=== PATIENT | male | born 1975 | race Hispanic/Latino ===

== ENCOUNTER 2024-07-31 15:43 | Emergency (ER) | payer SELFPAY ==
--- NOTE | ~2024-07-31 | CT_ITS ---
EXAMINATION: CT brain wo con DATE: 07/31/2024 17:10 INDICATION: Seizure TECHNIQUE: Computed tomography (CT) of the head was performed without intravenous contrast. Sagittal and coronal reconstructions were performed. The mA was adjusted according to patient size. Iterative reconstruction technique was employed. The dose-length product was 681.00 mGy-cm. COMPARISON: None FINDINGS: No acute intracranial hemorrhage, acute infarction or abnormal extra axial fluid collection. Ventricl es are normal and symmetric. No mass/mass effect. The orbits, paranasal sinuses and mastoid air cells are normal. IMPRESSION: 1. No acute intracranial process. Reviewed, dictated and finalized at location A.
--- NOTE | ~2024-07-31 | XR_ITS ---
EXAMINATION: XR femur RT min 2V DATE: 07/31/2024 17:00 INDICATION: Right femur pain post fall TECHNIQUE: Overlapping proximal and distal, AP and lateral views of the right femur were obtained. COMPARISON: None FINDINGS: Alignment is normal. No fracture. Right hip and knee joint spaces appear normal. Mild osteoarthritis at the left sacroiliac joint. There is suggestion of some cystic change at the anterosuperior right femoral head neck junction. No knee joint effusion. Soft tissues are unremarkable. IMPRESSION: No acute osseous abnormality. Reviewed, dictated and finalized at location A.
--- NOTE | ~2024-07-31 | CT_ITS ---
CT cervical spine wo con Ordering provider: Stacie Carreno PA-C History: . seizure . Comparison: None. Technique: CT of the cervical spine was performed without contrast. Sagittal and coronal reformatted images were also obtained and reviewed. Automated exposure control and iterative reconstruction juliane hnique were employed. The dose-length product was 413.36 mGy-cm. FINDINGS: VERTEBRAE: No subluxation or acute fracture. The occipital condyles are intact. Degenerative changes of the spine. DISC SPACES: Severe narrowing of the disc C5-C6 and C6-C7. Multilevel facet joint disease. Multilevel uncovertebral joint osteoarthritic changes. Narrowing of the right foramen at the level of C2-C3 and C3-C4. Bilateral narrowing of the foramina at the level of C4-C5, C5-C6 and C6-C7. PARASPINOUS SOFT TISSUES: Normal. IMPRESSION: No acute osseous abnormality cervical spine. Multilevel degenerative disc disease. Reviewed, dictated and finalized at location A.
--- NOTE | ~2024-07-31 | XR_ITS ---
EXAMINATION: XR knee LT min 4V DATE: 07/31/2024 17:00 INDICATION: Left knee injury post seizure TECHNIQUE: Anteroposterior, 2 oblique and crosstable lateral views of the left knee were obtained COMPARISON: None. FINDINGS: Alignment is normal. No fracture. Joint spaces appear normal on nonweightbearing imaging. No joint e ffusion/layering lipohemarthrosis. Soft tissues are unremarkable. IMPRESSION: 1. Normal left knee radiographs. Reviewed, dictated and finalized at location A.
--- NOTE | ~2024-07-31 | XR_ITS ---
EXAMINATION: XR chest 2V DATE: 07/31/2024 16:18 INDICATION: Syncope versus seizure TECHNIQUE: frontal and lateral views of the chest were obtained. COMPARISON: None FINDINGS: The lungs are clear with no focal airspace opacities, pulmonary edema, pleural effusion or pneumothor ax. The cardiomediastinal silhouette is normal. Mild to moderate thoracic spondylosis. IMPRESSION: 1. No acute cardiopulmonary disease. Reviewed, dictated and finalized at location A.
[2024-07-31 15:47] VITALS: BP 146/90; PULSE 86; RESP 16; O2SAT 97
--- NOTE | 2024-07-31 15:50 | ECG_ITS ---
Test Date: 2024-07-31 15:56:50 Measurements Intervals [place] Rate: 90 P: 38 ND: 138 QRS: 54 QRSD: 92 T: 32 QT: 342 QTc: 419 Interpretive Statements SINUS RHYTHM POSSIBLE RIGHT VENTRICULAR CONDUCTION DELAY [RSR (QR) IN V1/V2] ARTIFACT LIMITS INTERPRETATION ABNORMAL ECG No previous ECG available for comparison Electronically Signed On 08-01-2024 09:47:56 CDT by Manjit Selby M.D.
[2024-07-31 15:55] VITALS: BP 146/90; PULSE 88; RESP 16; TEMP 36.6; O2SAT 100
[2024-07-31 15:58] LABS: Glucose Point of Care 121 mg/dl (65-105)
[2024-07-31 15:59] LABS: Basophils Absolute Auto 0.1 K/mm3 (0.0-0.1); Basophils Percent Auto 1.5 % (0.2-1.2); Eosinophils Percent Auto 0.6 % (0-4.4); Hematocrit 38.4 % (42.0-52.0); Hemoglobin 12.3 g/dL (14.0-18.0); Immature Granulocyte Absolute 0.02 K/mm3 (0.00-0.031); Immature Granulocyte Percent A 0.3 % (0-0.5); Lymphocytes Absolute Auto 1.23 K/mm3 (0.9-3.2); Lymphocytes Percent Auto 18.2 % (18.3-44.2); Mean Corpuscular Hemoglobin 32.8 pg (26-34); Mean Corpuscular Volume 102.4 fl (80-100); Mean Platelet Volume 10.1 fl (7.4-10.4); Monocytes Absolute Auto 1.1 K/mm3 (0.1-0.6); Monocytes Percent Auto 16.3 % (2.6-8.5); Neutrophils Absolute Auto 4.3 K/mm3 (1.3-6.7); Neutrophils Percent Auto 63.1 % (45.5-73.1); Platelet Count Result 241 k/mm3 (150-375); Red Blood Count 3.75 M/mm3 (4.6-6.20); Red Cell Distribution Width 13.5 % (11.5-14.5); White Blood Count 6.8 K/mm3 (4.5-10.0)
--- NOTE | 2024-07-31 16:00 | PC.NURSE ---
seizure pads are in place on cot
[2024-07-31 16:01] VITALS: BP 137/93; PULSE 92; RESP 19; O2SAT 96
[2024-07-31 16:09] LABS: Alanine Aminotransferase 42 U/L (6-50); Albumin Level 4.8 g/dL (3.5-5.1); Alkaline Phosphatase 82 U/L (38-126); Anion Gap 12 mmol/L (4-12); Aspartate Amino Transferase 219 U/L (17-59); Bilirubin,Total 1.2 mg/dL (0.2-1.3); Blood Urea Nitrogen 12 mg/dL (9-20); Calcium 10.1 mg/dL (8.4-10.2); Carbon Dioxide 26 mmol/L (22-30); Chloride 102 mmol/L (98-107); Estimated Glomerular Filt Rate > 60; Glucose 123 mg/dL (65-110); Potassium 3.6 mmol/L (3.4-5.0); Sodium 140 mmol/L (137-145)
[2024-07-31 16:45] VITALS: BP 142/92; PULSE 79; RESP 17; TEMP 36.6; O2SAT 98
[2024-07-31 16:47] LABS: Magnesium 1.2 mg/dL (1.6-2.3); Phosphorus 3.6 mg/dL (2.5-4.5)
[2024-07-31 16:56] LABS: Troponin I < 0.012 ng/mL (0.000-0.034)
[2024-07-31 17:02] LABS: Ethanol < 10 mg/dL (<10)
[2024-07-31] MEDS: SODIUM CHLORIDE 0.9% IV 1,000 ML 999 ML IV CONT (17:12)
[2024-07-31] MEDS: PHENobarbitaL sodium (*CRX) 130 MG/ML VIAL 260 MG IV PUSH (17:12)
[2024-07-31 17:16] VITALS: BP 142/89; PULSE 77; RESP 20; O2SAT 97
[2024-07-31 17:31] VITALS: BP 128/77; PULSE 77; RESP 13; TEMP 36.6; O2SAT 100
--- NOTE | 2024-07-31 17:33 | ED_ITS ---
HPI - Syncope General Chief Complaint: Syncope Stated Complaint: poss syncopal Time Seen by Provider: 07/31/24 15:43 History of Present Illness HPI narrative: 49-year-old Norwegian-speaking male presents to the ED via EMS with at bedside for a syncope versus seizure. At 3:00 p.m. 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 His witnessed the event. The patient reportedly hit his head on a Pallet nearby. It is uncertain how long the patient was out of consciousness. EMS was contacted in the patient was transported to the ED. The patient does not recall any events surrounding the seizure. He only remembers being at work and coming into the emergency department. Patient's at bedside states that he did not recognize her when he woke up. He has no prior history of seizures. He denies prodromal symptoms including chest pain or shortness of breath. No lip or tongue biting, no bowel or bladder incontinence. The patient does admit to drinking approximately 5-6 shooters of vodka a day for the past year. His last drink was yesterday at 5:00 p.m.. Denies history of alcohol withdrawal seizures or DTs. Patient is reporting bruising and pain to his left knee and right quad. Related Data Allergies Allergy/AdvReac Type Severity Reaction Status Date / Time No Known Allergies Allergy Verified 07/31/24 16:50 Review of Systems 2 Review of Systems: All systems reviewed & are unremarkable except as noted in HPI and below Exam 2 Narrative: GENERAL: Well-appearing, well-nourished, and in no acute distress. HEAD: Normocephalic, atraumatic. EYES: PERRLA and EOMI. ENT: Nares clear, no rhinorrhea or epistaxis. Mucous membranes moist. Tongue fasciculations. No intraoral lacerations NECK: Supple. No nuchal rigidity. No midline cervical spinous tenderness, crepitus, step-offs or deformities BACK: No midline thoracolumbar spinous tenderness, crepitus, step-offs or deformities CHEST: Clear to auscultation. No respiratory distress. HEART: Regular rate and rhythm. No murmur heard. Normal peripheral pulses. ABDOMEN: Soft, nontender, nondistended, normal active bowel sounds. EXTREMITIES: Tenderness to the anterior right quad with no overlying skin changes or obvious deformity, compartments are soft. Tenderness and ecchymosis to the medial aspect of the left knee. Full active and passive range of motion of all extremities. DP pulses 2+. Sensation intact. Course tremors with arms extended. SKIN: Warm, dry, no rash. NEURO: No focal deficits. Alert and oriented x4. Cranial nerves 2-12 intact. Strength 5/5 in BUE and BLE. Sensation intact throughout. No ataxia CIWA-Ar for Alcohol Withdrawal from [employer] on 07/31/2024 All calculations should be rechecked by clinician prior to use RESULT SUMMARY: 8 points Patients with scores <= typically do not require medication for withdrawal. INPUTS: Nausea/vomiting —> 0 = No nausea and no vomiting Tremor —> 4 = Moderate, with patient's arms extended Paroxysmal sweats —> 0 = No sweat visible Anxiety —> 4 = Moderately anxious, or guarded, so anxiety is inferred Agitation —> 0 = Normal activity Tactile disturbances —> 0 = None Auditory disturbances —> 0 = Not present Visual disturbances —> 0 = Not present Headache/fullness in head —> 0 = Not Present Orientation/clouding of sensorium —> 0 = Oriented, can do serial additions Course Vital Signs Vital signs: Vital Signs Pulse Rate 86 07/31/24 15:47 Respiratory Rate 16 07/31/24 15:47 Blood Pressure 146/90 H 07/31/24 15:47 Pulse Oximetry 97 07/31/24 15:47 Temperature 97.8 F 07/31/24 17:31 Pulse Rate 77 07/31/24 17:31 Respiratory Rate 13 07/31/24 17:31 Blood Pressure 128/77 07/31/24 17:31 Pulse Oximetry 100 07/31/24 17:31 Oxygen Delivery Room Air 07/31/24 15:55 MDM - Syncope MDM Narrative Medical decision making narrative: 49-year-old male presents to the emergency department via EMS from work with at bedside for a syncopal event versus seizure. Triage vitals with elevated blood pressure otherwise unremarkable. Upon arrival to the ED patient is A&O x4 and has no neurologic deficits. Exam is significant for the above. He does appear to be in EtOH withdrawal. Admits to daily drinking, last drink was yesterday at 5:00 p.m.. Suspect an alcohol withdrawal seizure. Seizure precautions started. Patient given 260 mg of phenobarbital, thiamine and fluids. Lab work without leukocytosis. Hemoglobin is 12.3 with the elevated MCV consistent with chronic alcohol abuse, no prior for comparison. Chemistries remarkable for an AST of 219, again consistent with chronic alcohol abuse. Glucose within normal limits. ETOH is less than 10. Magnesium low at 1.2 which was orally repleted. Phos within normal limits. CT brain and cervical spine showed no acute findings. Chest x-ray unremarkable. X-ray of the right femur and left knee show no acute osseous findings. EKG shows normal sinus rhythm with a rate of 90 ppm, normal IN interval, normal QRS duration, normal QTC, no ischemic changes. Troponin undetectable. I was notified by nursing staff the patient and his are requesting to leave. I evaluated the patient again at bedside. His tremors do seem to have improved. He is resting comfortably in exam bed. I recommended admission for EtOH withdrawal seizures. I discussed risks of leaving against medical advice including DTs, worsening condition, permanent disability and . Patient and verbalized understanding of these risks and would still like to leave against medical advice. He is A&O x4, answering all questions appropriately and capable of making his own decisions. I did send a prescription for Librium and magnesium supplementation to the pharmacy. Patient was given resources for detox programs advised return to the emergency department if he would desire further treatment or care. Lab Data 07/31/24 15:55 07/31/24 15:55 Labs: Lab Results 07/31/24 07/31/24 07/31/24 Range/Units 15:54 15:55 15:56 WBC 6.8 (4.5-10.0) K/mm3 RBC 3.75 L (4.6-6.20) M/mm3 Hgb 12.3 L (14.0-18.0) g/dL Hct 38.4 L (42.0-52.0) % MCV 102.4 H (80-100) fl MCH 32.8 (26-34) pg MCHC 32.0 (32-36) g/dl RDW 13.5 (11.5-14.5) % Plt Count 241 (150-375) k/mm3 MPV 10.1 (7.4-10.4) fl Immature Gran % (Auto) 0.3 (0-0.5) % Neut % (Auto) 63.1 (45.5-73.1) % Lymph % (Auto) 18.2 L (18.3-44.2) % Woodward % (Auto) 16.3 H (2.6-8.5) % Eos % (Auto) 0.6 (0-4.4) % Baso % (Auto) 1.5 H (0.2-1.2) % Lymph # (Auto) 1.23 (0.9-3.2) K/mm3 Woodward # (Auto) 1.1 H (0.1-0.6) K/mm3 Eos # (Auto) 0.0 (0-0.3) K/mm3 Baso # (Auto) 0.1 (0.0-0.1) K/mm3 Abs Immat Gran (auto) 0.02 (0.00-0.031) K/mm3 Absolute Neuts (auto) 4.3 (1.3-6.7) K/mm3 Absolute Nucleated RBC 0.000 (0.0-0.012) K/mm3 Nucleated RBC % 0.0 (0.0-0.2) % Sodium 140 (137-145) mmol/L Potassium 3.6 (3.4-5.0) mmol/L Chloride 102 (98-107) mmol/L Carbon Dioxide 26 (22-30) mmol/L Anion Gap 12 (4-12) mmol/L BUN 12 (9-20) mg/dL Creatinine 0.73 (0.7-1.3) mg/dL Estim Creat Clear Calc Not Reportable Estimated GFR > 60 (59 - ) Glucose 123 H (65-110) mg/dL POC Capillary Glucose 121 H (65-105) mg/dl Calcium 10.1 (8.4-10.2) mg/dL Phosphorus 3.6 (2.5-4.5) mg/dL Magnesium 1.2 L (1.6-2.3) mg/dL Total Bilirubin 1.2 (0.2-1.3) mg/dL AST 219 H (17-59) U/L ALT 42 (6-50) U/L Alkaline Phosphatase 82 (38-126) U/L Troponin I < 0.012 (0.000-0.034) ng/mL Total Protein 9.0 H (6.3-8.2) g/dL Albumin 4.8 (3.5-5.1) g/dL Ethyl Alcohol < 10 (<10) mg/dL Discharge Plan Discharge Clinical Impression: Hypomagnesemia Alcohol withdrawal seizure Qualifiers: Complication of substance-induced condition: with unspecified complication Q ualified Code(s): F10.939 - Alcohol use, unspecified with withdrawal, unspecified Patient Disposition: Left Against Medical Advice Condition: Stable Instructions: Alcohol Withdrawal (DC) Additional Instructions: You were evaluated in the emergency department for seizure. Her seizure was due to alcohol withdrawal. It was recommended that you stay in the hospital for further evaluation and management however you are requesting to be discharged home. You are at risk of permanent disability and . Return to the emergency department if you desire further workup or treatment. Patient Language: Norwegian Prescriptions: New chlordiazepoxide HCl 25 mg capsule 25 mg PO BID Qty: 21 0RF Rx Instructions: Take 2 pills every 6 hours on day 1, then take 2 pills every 8 hours on day 2, then take 2 pills every 12 hours on day 3, then take 2 pills once on day 4, then take one pill once on day 5 magnesium oxide 500 mg capsule 500 mg PO DAILY Qty: 7 0RF
--- OUTSIDE RECORDS SUMMARY | 2024-07-31 17:35 | XMS_ITS | Referral Summary ---
Author Organization [facility] Address [address] [place] [address] Care Team Providers Care Retail And Restaurant Name Role Phone No, Physician Primary Care Provider [phone] Allergies No known active allergies Medications ibuprofen (ADVIL,MOTRIN) 600 mg tablet Take 1 tablet (600 mg total) by mouth 3 (three) times a day 30 tablet 0 Active ondansetron ODT (ZOFRAN-ODT) 4 mg disintegrating tablet Take 1 tablet (4 mg total) by mouth every 8 (eight) hours as needed for nausea or vomiting 20 tablet 3 Active Social History Tobacco Use Types Packs/Day Years Used Date Smoking Tobacco: Never Assessed Personal Safety Answer Date Recorded Have you ever been in or are you currently in a harmful physical or emotional relationship or is someone making you feel afraid or unsafe? Denies 11/30/2022 Sex and Gender Information Value Date Recorded Sex Assigned at Not on file Legal Sex Male 10:33 AM CDT Gender Identity Not on file Sexual Orientation Not on file Last Filed Vital Signs Vital Sign Reading Time Taken Comments Blood Pressure 108/65 11/30/2022 12:15 PM CDT Pulse 74 11/30/2022 12:15 PM CDT Temperature 36.9 C (98.4 F) 11/30/2022 9:49 AM CDT Respiratory Rate 18 11/30/2022 9:49 AM CDT Oxygen Saturation 100% 11/30/2022 12:15 PM CDT Inhaled Oxygen Concentration - - Weight 68 kg (150 lb) 11/30/2022 9:49 AM CDT Height 175.3 cm (5' 9 ) 11/30/2022 9:49 AM CDT Body Mass Index 22.15 11/30/2022 9:49 AM CDT Plan of Treatment Not on file Insurance R [facility] Care Teams Retail And Restaurant Relationship Specialty Start Date End Date No, Physician PCP - General 10/02/18
--- OUTSIDE RECORDS SUMMARY | 2024-07-31 17:35 | XMS_ITS | Clinical Summary ---
Author Organization [facility] Address [address] [place] [address] Care Team Providers Care Pulp Maker Name Role Phone No, Physician Primary Care Provider Allergies No known active allergies Medications ibuprofen (ADVIL,MOTRIN) 600 mg tablet Take 1 tablet (600 mg total) by mouth 3 (three) times a day 30 tablet 0 Active ondansetron ODT (ZOFRAN-ODT) 4 mg disintegrating tablet Take 1 tablet (4 mg total) by mouth every 8 (eight) hours as needed for nausea or vomiting 20 tablet 3 Active Medical History Medical History Date Comments Known health problems: none Social History Tobacco Use Types Packs/Day Years [...] on file Sexual Orientation Not on file Obstetrics History Last Filed Vital Signs Vital Sign Reading [...] 11/30/2022 9:49 AM CDT Plan of Treatment Health Maintenance Due Date Last Done Comments Colon Cancer Screening-Colonoscopy 1975 Depression Screening 1975 Hepatitis C Screening 1975 DTaP/Tdap/Td Vaccine (1 - Tdap) 1986 Hepatitis B Screening 1993 Regular Well Visit/Exam 18-64 1993 Covid-19 Vaccine (3 - 2023-2 5 season) 2023 09/17/2020, 08/27/2020 Influenza Vaccine (#1) 2023 Pneumococcal vaccine <65 Aged Out No longer eligible based on patient's age to complete this topic Insurance [facility] Care Teams Pulp Maker Relationship Specialty Start Date End Date No, Physician PCP - General 10/02/18
--- NOTE | 2024-07-31 17:50 | PC.NURSE ---
Pt reports he wants to go home. ERP explained risks of leaving. Pt reported his understanding of risks of leaving and still wants to go home. ERP wrote 2 RXs and pt voiced understanding to DC instructions and RX. Pt is A/O x 4, tremors continue to BUE and spouse is driving pt home.
[2024-07-31] MEDS: MAGNESIUM OXIDE 400 MG TABLET PO (17:56)
== END 2024-07-31 17:53 | disposition left against medical advice (07) ==
PROVIDERS: Emergency Provider Physician Assistant
DX: E83.42 Hypomagnesemia (principal); F10.939 Alcohol use, unspecified with withdrawal, unspecified
CPT/HCPCS: 36415; 70450; 71046; 72125; 73552; 73564; 80053; 82077; 82948; 83735; 84100; 84484; 85025; 93005; 96361; 96374; 96375; 99284; A9270; J2560; J3411; J7030

== ENCOUNTER 2024-08-12 13:38 | Emergency (ER) | payer SELFPAY ==
[2024-08-12 13:41] VITALS: BP 160/73; PULSE 80; RESP 16; TEMP 36.4; O2SAT 98
--- OUTSIDE RECORDS SUMMARY | 2024-08-12 13:42 | XMS_ITS | Referral Summary ---
Author Organization [facility] Address [address] [place] [address] Care Team Providers Care Art Psychotherapist Or Therapist Name Role Phone No, Physician Primary Care Provider [phone] Allergies No known active allergies Medications ibuprofen [...] 9:49 AM CDT Height 175.3 cm (5' 9) 11/30/2022 9:49 AM CDT Body Mass Index 22.15 11/30/2022 9:49 AM CDT Plan of Treatment Not on file Insurance R [facility] Care Teams Art Psychotherapist Or Therapist Relationship Specialty Start Date End Date No, Physician PCP - General 10/02/18
--- OUTSIDE RECORDS SUMMARY | 2024-08-12 13:42 | XMS_ITS | Continuity of Care Document ---
Author Organization [facility] Address [address] [place] [address] Phone Care Team Providers Care Process Engineering Manager Name Role Phone Unavailable Unavailable Unavailable Allergies, Adverse Reactions, Alerts Substance Reaction Status Criticality No Known Allergies Active No Inform ation Procedures Procedure Date PERIODIC COMPREHENSIVE PREVENTIVE MED RE E/M; ESTABLISHED PATIENT; 4064 HEMOGLOBIN; GLYCOSYLATED (A1C) OFFICE/OUTPATIENT VISIT, [facility] OFFICE/OUTPATIENT VISIT, [facility] Alcohol and/or drug screening Prescription Drug, Oral, Non-Chemotherap eutic, NOS Advance Directives Directive Yes / No Effective Date File Name No Information Encounters Encounter Description Practice Location Reason(s) For Visit Diagnoses Date Provider Providers Copied on Encounter [facility], [address], [place], [place], [id number] , [place] tel: [phone] [facility] No Information 3 No Information PERIODIC COMPREHENSIVE PREVENTIVE MED REE/M; ESTABLISHED PATIENT; [address] [facility], [address], [place], [place], [id number] , [place] tel:[phone] [facility] Physical Exam (chief complaint) Body mass index (BMI) 27.0-27.9, adultEncounter for general adult medical exam w abnormal findingsEncounte r for screening for cholesterol levelEncounter for screening for diabetes mellitusEncounte r for screening for malignant neoplasm of colonOverweightE ncounter for sexually transmitted disease screeningDizzine ssNicotine dependence, cigarettes, uncomplicated 2 No Information [facility], [address], [place], [place], [address] , [place] tel:[phone] [facility] No Information 1 No Information OFFICE/OUTPATI ENT VISIT, EST [facility], [address], [place], [place], [id number] , [place] tel: [phone] [facility] STI treatment (chief complaint) Body mass index (BMI) 27.0-27.9, adultTrichomonal urethritisEncoun ter for sexually transmitted disease screeningOverwei ght 1 No Information OFFICE/OUTPATI ENT VISIT, NEW [facility], [address], [place], [place], [address] , [place] tel: [phone] [facility] trich txt (chief complaint) Trichomonal urethritisEncoun ter for screening for other disorder No Information Family History Family Member Type Diagnosis Age At Onset Problem No family history of Cancer, colon Problem No family history of Cancer, prostate Immunizations Vaccine Date Status Comments COVID-19 Pfizer 12+ Nieves Cap administered Source: Other Registry COVID-19 Pfizer 12+ Nieves Cap administered Source: Other Registry Payers Payer name Insurance type Covered libertarian ID Authoriza timarjan(s) [facility] CI [id number] Social History Type Description Quantity Date Captured Comments Alcohol Use Details Unknown Caffeine Use Details Unknown Tobacco Use Status Smoking Status No Information Sex Male Sexual Orientation Straight or heterosexual Feb Gender Identity Male Chief Complaint And Reason For Visit No Information Reason For Referral Reason For Referral No Information Plan Of Treatment Date Type Action Status Goal Tobacco cessation counseling completed Referral Ordered: Referrals: Colonoscopy. Location: [facility]. Consult. Diagnostic testing Appointment date/timeframe: 3 Months ordered Future Order: Lab Order Trichomo zita vaginalis RNA MALE, Qualitative, TMA ([id number]), Scheduled for: Ordered Nutrition Recommendation Nutrition therap y completed Nutrition Recommendation Nutrition therap y completed History Of Present Illness Encounter Date Complaint History Of Prese nt Illness Physical Exam Patient is a 46 year old male who presents for physical exam today. Just would like a general check up. Says it was about 9 years ago his last one done in [facility] any PMHX.no medications.He says that sometimes when he has some position changing he will have dizziness that just lasts seconds. Started last month. Drinks a lot of water during the day. Says its mainly in the morning when he gets up. denies any headaches, chest pain, sob.Has no other complaints today, just wanting a general physical. Lives at home with his . 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 Did get covid vaccines.Needs colonoscopy. STI treatment Patient is a 45 year old male who presents for STI treatment. Patients girlfriend continues to have recurrent trich. Pt got treated once earlier this year, but never had АНДРЕЙ done.Denies any symptoms currently such as discharge, dysuria, hematuria, testicular pain, genital lesions. trich txt Patient is a 45 year old male who presents for treatment.Girlfriend positive for trich recently in the ER. pt has not had treatment yet. no allergies to medications. no symptoms currently. Functional Status Date Functional Assessmen t No Information Instructions Date Instruction Additional Infor darrell labs todaySuspect du e to some dehydration in the morningFollow up if it continues to worsen Related to Dizziness Welcome to [facility]! We are thankful to have you as our patient! We have many services available to our patients in addition to excellent primary care, including: Women's Health (all locations, INCLUDING [facility])Pediatrics (all locations)Dental (Tiffany Schmidt, [facility])Eye doctor, including glasses and diabetic eye exams (Tiffany)Chiropractic (Tiffany Schmidt, [facility])Hearing (Tiffany)Foot doctor (Tiffany Schmidt [place], [facility])Behavioral Health and Substance Abuse ServicesPharmacy for patients who are uninsured, have Medicaid, or [place] to [facility] Health ([place])Insurance application assistance (Tiffany Schmidt [place], [place])WIC and assistance care servicesYoga ([place])Urgent Care ([place]) M-W 8-7P; - 8-5PWalk in appointments at all locations for established patientsFor urgent medical questions when the clinic is closed, please call the afterhours exchange [phone] Related to Encounter for general adult medical exam w abnormal findings Referral to [facility] for colonosco py Related to Encounter for screening for malignant neoplasm of colon Giving encouragement to exercise Related to Body mass index [BMI] 27.0-27.9, adult 2 g did not work las t visit, will do flagyl for 1 weekFollow up in a few weeks to see if trich is gone Related to Trichomonal urethritis Prescribed activity/exercise edu cation Related to Body mass index [BMI] 27.0-27.9, adult 2g flagyl given today Related to Trichomonal urethritis Assessments Type Assessment Date No Information Patient Care Teams Name Effective Dates (start - stop) Status Members No Information
--- OUTSIDE RECORDS SUMMARY | 2024-08-12 13:42 | XMS_ITS | Clinical Summary ---
Author Organization [facility] Address [address] [place] [address] Care Team Providers Care Cat Breeder Name Role Phone No, Physician Primary Care Provider [phone] Allergies No known active allergies Medications ibuprofen [...] 5 season) 2023 09/17/2020, 08/27/2020 Influenza Vaccine (Season Ended) 2024 Pneumococcal vaccine <65 Aged Out No longer eligible based on patient's age to complete this topic Insurance [facility] H[facility]/PPO Address: [address] [address] Care Teams Cat Breeder Relationship Specialty Start Date End Date No, Physician PCP - General 10/02/18
--- NOTE | 2024-08-12 13:52 | ED.GENADULT ---
HPI - General Adult General Chief complaint: Unspecified Stated complaint: Needs work release Time Seen by Provider: 08/12/24 13:45 Source: patient Mode of arrival: ambulatory Limitations: no limitations History of Present Illness HPI narrative: Patient is a 49 y/o male who presents to the ED wanting a work release. Patient reports he had a seizure at his job on 07/31/24. He was seen in the ED here after the seizure. Diagnosed with alcohol withdrawal seizure. Patient states he has since returned to work all last week, but today they notified him that he needed a work release. Patient has been feeling fine since his ED visit. He has not had any further alcohol use, withdrawal symptoms, seizure activity. Has not had any other concerns. Related Data Allergies Allergy/AdvReac Type Severity Reaction Status Date / Time No Known Allergies Allergy Verified 08/12/24 13:38 Review of Systems Review of Systems: All systems reviewed & are unremarkable except as noted in HPI. All systems reviewed & are unremarkable except as noted in HPI and below Exam Narrative: GENERAL: Well appearing, well-nourished, non-toxic, in no acute distress. HEAD: Normocephalic, atraumatic. RESPIRATORY: Airway patent, respirations nonlabored. CARDIOVASCULAR: Regular rate and rhythm MUSCULOSKELETAL: Moves all extremities. No gross deformities. No tremors. SKIN: Warm, dry, normal color. NEURO: A&O X3. Speech clear. No focal deficits. PSYCHIATRIC: Appropriate mood and affect. Normal interaction. Course Vital Signs Vital signs: Vital Signs Temperature 97.5 F L 08/12/24 13:41 Pulse Rate 80 08/12/24 13:41 Respiratory Rate 16 08/12/24 13:41 Blood Pressure 160/73 H 08/12/24 13:41 Pulse Oximetry 98 08/12/24 13:41 Oxygen Delivery Room Air 08/12/24 13:41 Temperature 97.5 F L 08/12/24 13:41 Pulse Rate 80 08/12/24 13:41 Respiratory Rate 16 08/12/24 13:41 Blood Pressure 160/73 H 08/12/24 13:41 Pulse Oximetry 98 08/12/24 13:41 Oxygen Delivery Room Air 08/12/24 13:41 Medical Decision Making MDM Narrative Medical decision making narrative: Patient denies any further alcohol use, denies any further withdrawal symptoms. He is not exhibiting any signs of alcohol withdrawal at the time of my evaluation. Given work release to resume work. Medical Records Medical records reviewed: Yes I reviewed the external patient's medical records. Vital Signs Vital Signs: Vital Signs Temperature 97.5 F L 08/12/24 13:41 Pulse Rate 80 08/12/24 13:41 Respiratory Rate 16 08/12/24 13:41 Blood Pressure 160/73 H 08/12/24 13:41 Pulse Oximetry 98 08/12/24 13:41 Oxygen Delivery Room Air 08/12/24 13:41 Temperature 97.5 F L 08/12/24 13:41 Pulse Rate 80 08/12/24 13:41 Respiratory Rate 16 08/12/24 13:41 Blood Pressure 160/73 H 08/12/24 13:41 Pulse Oximetry 98 08/12/24 13:41 Oxygen Delivery Room Air 08/12/24 13:41 Discharge Plan Discharge Clinical Impression: Return to work exam Patient Disposition: Home Condition: Stable Instructions: Antibiotic Form, At-Risk Alcohol Use (ED) Additional Instructions: Follow-up with your primary care doctor for further evaluation if needed. Return to the ED for new or worsening concerns, recurrent seizure activity, unable to keep down food or drink, chest pain, difficulty breathing, or any other symptoms of concern. Patient Language: Serbian Prescriptions: No Action chlordiazepoxide HCl 25 mg capsule 25 mg PO BID Qty: 21 0RF Rx Instructions: Take 2 pills every 6 hours on day 1, then take 2 pills every 8 hours on day 2, then take 2 pills every 12 hours on day 3, then take 2 pills once on day 4, then take one pill once on day 5 magnesium oxide 500 mg capsule 500 mg PO DAILY Qty: 7 0RF Follow-up/Referrals: Tuan Gregg MD [Physician] - (PRIMARY CARE) PHYSICIAN,SOCIAL INSURANCE ANALYST [Primary Care Provider] - Stand Alone Forms: Work/School Release IP Time of Disposition: 13:58
--- OUTSIDE RECORDS SUMMARY | 2024-08-12 14:04 | XMS_ITS | Clinical Summary ---
Author Organization [facility] Address [address] [place] [address] Care Team Providers Care Civil Service Worker Name Role Phone No, Physician Primary Care Provider [phone] Allergies No known active allergies Medications ibuprofen [...] patient's age to complete this topic Insurance [facility] Care Teams Civil Service Worker Relationship Specialty Start Date End Date No, Physician PCP - General 10/02/18
--- OUTSIDE RECORDS SUMMARY | 2024-08-12 14:04 | XMS_ITS | Referral Summary ---
Author Organization [facility] Address [address] [place] [address] Care Team Providers Care Geospatial Analyst Name Role Phone No, Physician Primary Care Provider [phone] Allergies No known active allergies Medications ibuprofen [...] of Treatment Not on file Insurance R [facility] Care Teams Geospatial Analyst Relationship Specialty Start Date End Date No, Physician PCP - General 10/02/18
--- OUTSIDE RECORDS SUMMARY | 2024-08-12 14:04 | XMS_ITS | Continuity of Care Document ---
Author Organization [facility] Address [address] [place] [address] Phone Care Team Providers Care Management Professor Name Role Phone Unavailable Unavailable Unavailable Allergies, Adverse Reactions, Alerts Substance Reaction Status Criticality No Known Allergies Active No Inform ation Procedures Procedure Date PERIODIC COMPREHENSIVE PREVENTIVE MED RE E/M; ESTABLISHED PATIENT; 4064 HEMOGLOBIN; GLYCOSYLATED (A1C) OFFICE/OUTPATIENT VISIT, [facility] OFFICE/OUTPATIENT VISIT, [facility] Alcohol and/or drug screening Prescription Drug, Oral, Non-Chemotherap eutic, NOS Advance Directives Directive Yes / No Effective Date File Name No Information Encounters Encounter Description Practice Location Reason(s) For Visit Diagnoses Date Provider Providers Copied on Encounter [facility], [address], [place], [place], [id number] , [place] tel: [phone] [email or web address] On Page No Information 3 No Information PERIODIC COMPREHENSIVE PREVENTIVE MED REE/M; ESTABLISHED PATIENT; [address] [facility], [address], [place], [place], [id number] , [place] tel:[phone] [email or web address] Physical Exam (chief complaint) Body mass index (BMI) 27.0-27.9, adultEncounter for general adult medical exam w abnormal findingsEncounte r for screening for cholesterol levelEncounter for screening for diabetes mellitusEncounte r for screening for malignant neoplasm of colonOverweightE ncounter for sexually transmitted disease screeningDizzine ssNicotine dependence, cigarettes, uncomplicated 2 No Information [facility], [address], [place], [place], [id number] , [place] tel:[phone] [facility] No Information 1 No Information OFFICE/OUTPATI ENT VISIT, EST [facility], [address], [place], [place], [id number] , [place] tel: [phone] [facility] STI treatment (chief complaint) Body mass index (BMI) 27.0-27.9, adultTrichomonal urethritisEncoun ter for sexually transmitted disease screeningOverwei ght 1 No Information OFFICE/OUTPATI ENT VISIT, NEW [facility], [address], [place], [place], [address] , [place] tel: [phone] [facility] trich txt (chief complaint) [...] Registry Payers Payer name Insurance type Covered green party ID Authoriza timarjan(s) [facility] CI [id number] Social History Type Description Quantity Date Captured [...] Trichomo zita vaginalis RNA MALE, Qualitative, TMA (48393H), Scheduled for: Ordered Nutrition Recommendation Nutrition therap y completed Nutrition Recommendation Nutrition therap y completed History Of Present Illness Encounter Date Complaint History Of Prese nt Illness Physical Exam Patient is a 46 year old male who presents for physical exam today. Just would like a general check up. Says it was about 9 years ago his last one done in [facility] any PMHX.no medications.He says that sometimes when [...] home with his . 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 Did get covid vaccines.Needs colonoscopy. STI [...] care, including: Women's Health (all locations, INCLUDING [place])Pediatrics (all locations)Dental (Tiffany Schmidt, [facility])Eye doctor, including glasses and diabetic eye exams (Tiffany)Chiropractic (Tiffany Schmidt, [facility])Hearing (Tiffany)Foot doctor (Tiffany Schmidt [place], [facility])Behavioral Health and Substance Abuse ServicesPharmacy for patients who are uninsured, have Medicaid, or [place] to [facility] ([place])Insurance application assistance (Tiffany Schmidt [place], [place])WIC and assistance care servicesYoga ([place])Urgent Care ([place]) M-W 8-7P; - 8-5PWalk in appointments at all locations for established patientsFor urgent medical questions when the clinic is closed, please call the afterhours exchange [phone] Related to Encounter for general adult medical [...]
== END 2024-08-12 14:06 | disposition home or self-care (01) ==
PROVIDERS: Emergency Provider Physician Assistant
DX: Z02.89 Encounter for other administrative examinations (principal)
CPT/HCPCS: 99281